=== PATIENT | female | born 2000 | race Caucasian/White ===

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

== ENCOUNTER → 2019-12-16 | Outpatient (CLI) | payer OTHER | LOC: M.ULTRA 12:55 | DX: N96 Recurrent pregnancy loss (principal) ==